=== PATIENT | male | born 1985 | race Caucasian/White ===

== ENCOUNTER 2018-10-06 13:06 | Emergency (ER) | payer SELFPAY ==
[2018-10-06 13:19] VITALS: BP 121/89; PULSE 68; RESP 20; TEMP 36.8; O2SAT 100
--- NOTE | 2018-10-06 13:47 | W.ED.GENAD ---
Discharge Plan Disposition Patient Disposition: HOME Condition: Stable Discharge Details Chief Complaint: DentalOral Clinical Impression: Dental infection, Broken tooth Primary Care Provider: Kasi Lundy ED Provider: Lourdes Seals Home Meds and New Rx's Prescriptions: New penicillin V potassium 500 mg tablet 500 mg PO QID 7 Days Qty: 28 RF: 0 naproxen 250 mg tablet 250 mg PO BID PRN (Reason: pain) Qty: 20 RF: 0 Discharge Instructions Instructions: Dental Abscess (ED), Acute Dental Trauma (ED) Additional Instructions: Take the antibiotics until finished. Take naproxen as needed and directed for pain. Call your dentist today to schedule a follow-up appointment for reevaluation and referral to oral surgery if indicated. Return immediately to the emergency department with any worsening or new concerning symptoms. Discharge Data Discharge Physician: Lourdes Seals Medical Decision Making 32-year-old male who presents with right upper dental pain for the past few days after fractured his wisdom tooth a few months ago. Right upper wisdom tooth appears fracture on the buccal side. There is mild surrounding erythema, edema and tenderness palpation but no obvious abscess. Vitals within normal limits. Patient appears nontoxic. Airway intact. We will send home with a prescription for Pen-V K. Patient states he needed a referral for oral surgery as he had seen a dentist in the past and was advised to have oral surgery remove or repair his wisdom tooth. Discussed that patient needs to follow-up with the dentist for referral to oral surgery if indicated. He is instructed to return here with any worsening symptoms. HPI General Mode of arrival: ambulatory. Date/Time Provider Initiated Documentation: 10/06/18 13:29. Limitations to Documentation: no limitations. Information obtained by: patient. HPI Narrative: Patient is a 32-year-old male presents with right upper dental pain for the past few days. Patient states he fractured the tooth several months back but did not cause pain until the last few days. He denies any fever. Related Data Home Medications Medication Instructions Recorded Confirmed naproxen 250 mg PO BID PRN #20 tab 10/06/18 penicillin V potassium 500 mg PO QID 7 Days #28 tab 10/06/18 Previous Rx's Medication Instructions Recorded naproxen 250 mg PO BID PRN #20 tab 10/06/18 penicillin V potassium 500 mg PO QID 7 Days #28 tab 10/06/18 Allergies Allergy/AdvReac Type Severity Reaction Status Date / Time cat dander Allergy Mild runny Unverified 10/06/18 13:22 nose-itchy eyes General Stated Complaint: DentalOral SHERIF: 4 Review of Systems Review of Systems All systems reviewed & are unremarkable except as noted in HPI and below Constitutional Reports as per HPI, Denies chills and Denies fever(s) Eyes Denies blurry vision ENT Reports dental pain, Denies dizziness, Denies sore throat and Denies throat swelling Cardiovascular Denies chest pain and Denies dyspnea Respiratory Denies cough and Denies dyspnea Gastrointestinal Denies abdominal pain, Denies diarrhea and Denies vomiting Genitourinary Denies hematuria and Denies dysuria Musculoskeletal Denies back pain and Denies numbness Integumentary/Breasts Denies lesions and Denies rash Neurologic Denies dizziness, Denies focal weakness and Denies numbness Allergic/Immunologic Denies throat swelling [facility] Medical History Suicide attempt (Acute) Anxiety (Chronic) Depression (Chronic) Surgical History History of ankle surgery (Acute) History of elbow surgery (Acute) History of tonsillectomy and adenoidectomy (Acute) Social History Smoking/Tobacco Use Status: Current every day Alcohol Intake: never Drug use: Daily Substance use type: does not use Do you feel safe in your relationship?: Yes Exam Const General: cooperative, healthy appearing and no acute distress HENAK Head: normal to inspection Ears: hearing grossly normal bilaterally, external ears normal and TM's normal bilaterally General nose exam: external nose normal Face and sinus: normal facial exam Mouth: oral mucosae normal Teeth image: 1. Fractured wisdom tooth on buccal side. Surrounding tenderness, mild mild edema and erythema. No abscess. Throat: posterior oropharynx normal Eyes General: appearance normal, both eyes and all related structures Neck Neck: normal visual inspection Resp Effort & Inspection: normal respiratory effort and able to speak in complete sentences Cardio Rate: regular rate Skin General skin exam: no rashes or lesions noted Neuro General: alert, awake and oriented x3 Motor: muscle tone normal throughout Extrem General: normal to inspection and full ROM Psych Appearance: grossly normal Affect: normal affect Course Vital Signs Temperature 98.2 F 10/06/18 13:19 Pulse 68 10/06/18 13:19 Respiratory Rate 20 10/06/18 13:19 Blood Pressure 121/89 10/06/18 13:19 Pulse Oximetry 100 10/06/18 13:19 Temperature 98.2 F 10/06/18 13:19 Temperature Source Temporal Artery Scan 10/06/18 13:19 Pulse 68 10/06/18 13:19 Respiratory Rate 20 10/06/18 13:19 Respiratory Effort Non-Labored 10/06/18 13:19 Blood Pressure 121/89 10/06/18 13:19 Blood Pressure Position Standing 10/06/18 13:19 Pulse Oximetry 100 10/06/18 13:19 Oxygen Delivery Method Room Air 10/06/18 13:19 Oxygen Flow Rate 0 10/06/18 13:19 Pain Level 10 10/06/18 13:19
--- NOTE | 2018-10-06 13:53 | ED.GENADUL_ITS ---
Discharge Plan Disposition Patient Disposition: HOME Condition: Stable Discharge Details Chief Complaint: DentalOral Clinical Impression: Dental infection, Broken tooth Primary Care Provider: Kasi Lundy ED Provider: Lourdes Seals Home Meds and New Rx's Prescriptions: New penicillin V potassium 500 mg tablet 500 mg PO QID 7 Days Qty: 28 RF: 0 naproxen 250 mg tablet 250 mg PO BID PRN (Reason: pain) Qty: 20 RF: 0 Discharge Instructions Instructions: Dental Abscess (ED), Acute Dental Trauma (ED) Additional Instructions: Take the antibiotics until finished. Take naproxen as needed and directed for pain. Call your dentist today to schedule a follow-up appointment for reevaluation and referral to oral surgery if indicated. Return immediately to the emergency department with any worsening or new concerning symptoms. Discharge Data Discharge Physician: Lourdes Seals Medical Decision Making 32-year-old male who presents with right upper dental pain for the past few days after fractured his wisdom tooth a few months ago. Right upper wisdom tooth appears fracture on the buccal side. There is mild surrounding erythema, edema and tenderness palpation but no obvious abscess. Vitals within normal limits. Patient appears nontoxic. Airway intact. We will send home with a prescription for Pen-V K. Patient states he needed a referral for oral surgery as he had seen a dentist in the past and was advised to have oral surgery remove or repair his wisdom tooth. Discussed that patient needs to follow-up with the dentist for referral to oral surgery if indicated. He is instructed to return here with any worsening symptoms. HPI General Mode of arrival: ambulatory . Date/Time Provider Initiated Documentation: 10/06/18 13:29 . Limitations to Documentation: no limitations . Information obtained by: patient . HPI Narrative: Patient is a 32-year-old male presents with right upper dental pain for the past few days. Patient states he fractured the tooth several months back but did not cause pain until the last few days. He denies any fever. Related Data Home Medications Medication Instructions Recorded Confirmed naproxen 250 mg PO BID PRN #20 tab 10/06/18 penicillin V potassium 500 mg PO QID 7 Days #28 tab 10/06/18 Previous Rx's Medication Instructions Recorded naproxen 250 mg PO BID PRN #20 tab 10/06/18 penicillin V potassium 500 mg PO QID 7 Days #28 tab 10/06/18 Allergies Allergy/AdvReac Type Severity Reaction Status Date / Time cat dander Allergy Mild runny Unverified 10/06/18 13:22 nose-itchy eyes General Stated Complaint: DentalOral SHERIF: 4 Review of Systems Review of Systems All systems reviewed & are unremarkable except as noted in HPI and below Constitutional Reports as per HPI, Denies chills and Denies fever(s) Eyes Denies blurry vision ENT Reports dental pain, Denies dizziness, Denies sore throat and Denies throat swelling Cardiovascular Denies chest pain and Denies dyspnea Respiratory Denies cough and Denies dyspnea Gastrointestinal Denies abdominal pain, Denies diarrhea and Denies vomiting Genitourinary Denies hematuria and Denies dysuria Musculoskeletal Denies back pain and Denies numbness Integumentary/Breasts Denies lesions and Denies rash Neurologic Denies dizziness, Denies focal weakness and Denies numbness Allergic/Immunologic Denies throat swelling [facility] Medical History Suicide attempt (Acute) Anxiety (Chronic) Depression (Chronic) Surgical History History of ankle surgery (Acute) History of elbow surgery (Acute) History of tonsillectomy and adenoidectomy (Acute) Social History Smoking/Tobacco Use Status: Current every day Alcohol Intake: never Drug use: Daily Substance use type: does not use Do you feel safe in your relationship?: Yes Exam Const General: cooperative, healthy appearing and no acute distress HENDE Head: normal to inspection Ears: hearing grossly normal bilaterally, external ears normal and TM's normal bilaterally General nose exam: external nose normal Face and sinus: normal facial exam Mouth: oral mucosae normal Teeth image: 1. Fractured wisdom tooth on buccal side. Surrounding tenderness, mild mild edema and erythema. No abscess. Throat: posterior oropharynx normal Eyes General: appearance normal, both eyes and all related structures Neck Neck: normal visual inspection Resp Effort & Inspection: normal respiratory effort and able to speak in complete sentences Cardio Rate: regular rate Skin General skin exam: no rashes or lesions noted Neuro General: alert, awake and oriented x3 Motor: muscle tone normal throughout Extrem General: normal to inspection and full ROM Psych Appearance: grossly normal Affect: normal affect Course Vital Signs Temperature 98.2 F 10/06/18 13:19 Pulse 68 10/06/18 13:19 Respiratory Rate 20 10/06/18 13:19 Blood Pressure 121/89 10/06/18 13:19 Pulse Oximetry 100 10/06/18 13:19 Temperature 98.2 F 10/06/18 13:19 Temperature Source Temporal Artery Scan 10/06/18 13:19 Pulse 68 10/06/18 13:19 Respiratory Rate 20 10/06/18 13:19 Respiratory Effort Non-Labored 10/06/18 13:19 Blood Pressure 121/89 10/06/18 13:19 Blood Pressure Position Standing 10/06/18 13:19 Pulse Oximetry 100 10/06/18 13:19 Oxygen Delivery Method Room Air 10/06/18 13:19 Oxygen Flow Rate 0 10/06/18 13:19 Pain Level 10 10/06/18 13:19
[2018-10-06 14:27] VITALS: BP 121/89; PULSE 68; RESP 20; TEMP 36.8; O2SAT 100
== END 2018-10-06 14:00 | disposition home or self-care (01) ==
PROVIDERS: Emergency Provider Physician Assistant; PCP Emergency Medicine
DX: K04.7 Periapical abscess without sinus (principal); K03.81 Cracked tooth; F17.210 Nicotine dependence, cigarettes, uncomplicated
CPT/HCPCS: 99281; 99283

== ENCOUNTER 2019-12-29 21:12 | Emergency (ER) | payer OTHER, SELFPAY ==
[2019-12-29] VITALS (7 sets, daily range): BP systolic 121–136; BP diastolic 87–97; PULSE 66–94; RESP 16; TEMP 36.4; O2SAT 96–99
--- NOTE | 2019-12-29 21:24 | W.ED.GENAD ---
Discharge Plan Disposition Patient Disposition: HOME Condition: Good Discharge Details Chief Complaint: Allergic Clinical Impression: Allergic reaction, Hymenoptera sting Primary Care Provider: Kasi Lundy ED Provider: Ilir Wong Home Meds and New Rx's Prescriptions: New diphenhydramine HCl [Benadryl] 25 MG capsule 25 mg PO Q6H Qty: 100 RF: 0 prednisone 50 MG tablet 50 mg PO DAILY Qty: 5 RF: 0 epinephrine 0.3 mg/0.3 mL auto-injector 0.3 mg IM ONCE Qty: 2 RF: 0 Continued naproxen 250 mg tablet 250 mg PO BID PRN (Reason: pain) Qty: 20 RF: 0 Vitamin C 1,000 mg Tablet Extended Release 1,000 mg PO QAM RF: 0 epinephrine [EpiPen] 0.3 mg/0.3 mL Auto-Injector 1 mg IM PRN PRNRF: 0 multivitamin with minerals [Men's One Daily] Tablet 1 tab PO DAILY RF: 0 Discharge Instructions Instructions: Anaphylaxis (ED) Additional Instructions: At this time thankfully you show no signs of anaphylaxis. Continue to monitor your symptoms closely, take the Benadryl every 6 hours and the prednisone every day until the prednisone prescription is completed. Make sure you have an EpiPen with you at all times. If you notice any worsening of your symptoms, or any new symptoms such as vomiting, diarrhea, fever, chills, swelling, worsening redness on your arm, shortness of breath, chest pain, numbness, weakness, or fainting , please return immediately to the emergency department for reevaluation. Please follow up with your primary care provider as soon as possible for reassessment and reevaluation. As always, it was a pleasure participating in your medical care today. 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 He is right-hand dominant. Patient states that 30 minutes ago while at work he was stung by a wasp, he immediately gave himself his EpiPen, and had no side effects aside for a small area of redness where the wasp stung him. He denies any nausea vomiting diarrhea chest pain shortness of breath hyper secretions or swelling in the mouth or throat. He states that when he was a child he had anaphylaxis but this is notably mild symptoms. He states that he has been stung since then, his symptoms are usually quite mild especially when he has himself an EpiPen. No other complaints at this time. No other modifying factors. He does state that he has EpiPen's at home still. Right arm shows a small area of redness with a punctate central lesion, no intact earlier retained stinger. Exam is otherwise unremarkable with no signs of airway edema drooling hyper secretions vomiting or diarrhea or wheezes. Signs and symptoms are clinically consistent with a notably mild hymenoptera sting. At this time secondary to his EpiPen use we will observe for a prolonged period, monitor closely and reassess. We will give Benadryl, Pepcid, and oral steroids. The patient states that he does not need additional EpiPen's from use. 11:15 p.m. Patient has been reassessed, the erythema on his arm at the wasp sting site has completely resolved. Patient continues to feel great, denies any difficulty swallowing, wheezes, nausea vomiting or shortness of breath. Patient feels well and is requesting to go home. With complete resolution of his symptoms, no evidence of rebound anaphylaxis or reaction, no other abnormalities on exam the patient can be discharged. Will give Benadryl steroids and new EpiPen for home use. Discussed red flags which to return. I have extensively reviewed the treatment plan and discharge instructions with the patient. I have addressed all patient concerns at this time. The patient was made aware of what symptoms to monitor for that would warrant a return to the emergency department. Discussed the plan with the patient, they demonstrate verbal understanding and agreement with our assessment and plan at this time. HPI General Date/Time Provider Initiated Documentation: 12/29/19 21:16. 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 He is right-hand dominant. Patient states that 30 minutes ago while at work he was stung by a wasp, he immediately gave himself his EpiPen, and had no side effects aside for a small area of redness where the wasp stung him. He denies any nausea vomiting diarrhea chest pain shortness of breath hyper secretions or swelling in the mouth or throat. He states that when he was a child he had anaphylaxis but this is notably mild symptoms. He states that he has been stung since then, his symptoms are usually quite mild especially when he has himself an EpiPen. No other complaints at this time. No other modifying factors. He does state that he has EpiPen's at home still. Related Data Home Medications Medication Instructions Recorded Confirmed naproxen 250 mg PO BID PRN #20 tab 10/06/18 12/29/19 Vitamin C 1,000 mg PO QAM 12/29/19 12/29/19 diphenhydramine HCl [Benadryl] 25 mg PO Q6H #100 cap 12/29/19 epinephrine 0.3 mg IM ONCE #2 each 12/29/19 epinephrine [EpiPen] 1 mg IM PRN PRN 12/29/19 12/29/19 multivitamin with minerals [Men's 1 tab PO DAILY 12/29/19 12/29/19 One Daily] prednisone 50 mg PO DAILY #5 tab 12/29/19 Previous Rx's Medication Instructions Recorded naproxen 250 mg PO BID PRN #20 tab 10/06/18 diphenhydramine HCl [Benadryl] 25 mg PO Q6H #100 cap 12/29/19 epinephrine 0.3 mg IM ONCE #2 each 12/29/19 prednisone 50 mg PO DAILY #5 tab 12/29/19 Allergies Allergy/AdvReac Type Severity Reaction Status Date / Time hornet venom Allergy Severe Anaphylaxsi Unverified 12/29/19 21:23 s cat dander Allergy Mild runny Unverified 10/06/18 13:22 nose-itchy eyes General Stated Complaint: Allergic SHERIF: 3 Review of Systems All systems reviewed & are unremarkable except as noted in HPI and below PFSH Medical History Anxiety (Chronic) Depression (Chronic) Suicide attempt (Acute) Surgical History History of ankle surgery (Acute) History of elbow surgery (Acute) History of tonsillectomy and adenoidectomy (Acute) Social History Smoking/Tobacco Use Status: Current every day Alcohol Intake: never Drug use: Daily Substance use type: does not use Do you feel safe at home: Yes Do you feel safe in your relationship?: Yes Exam Narrative Exam Narrative: 1.Const: Well-nourished, Well-developed, appearing stated age 2.Eyes: PERRL, no conjunctival injection, and symmetrical lids. 3.ENT: Atraumatic external nose and ears. Moist MM. Neck: Symmetric, trachea midline, No thyromegaly. No signs of swelling in the posterior oropharynx. 4.CVS: +S1/S2, No murmurs or gallops. Peripheral pulses 2+ and equal in all extremities. Brisk capillary refill in all extremities. 5.RESP: Unlabored respiratory effort. Clear to auscultation bilaterally. No wheezes rales or rhonchi 6.GI: Soft, Nontender/Nondistended, No hepatosplenomegaly. No guarding or rebound. 7.MSK: Normocephalic/Atraumatic, Extremities w/o deformity or ttp No cyanosis or clubbing, Normal movement of all extremities 8.Skin: Warm, Dry. No rashes or lesions. Small area of redness with a punctate hymenoptera sting dana at the center on the right forearm. Diameter is roughly 3 cm, non-indurated, only minimally erythematous. 9.Neuro: nurses assistant II-XII grossly intact. Sensation grossly intact, no focal neurologic deficits. 10.Psych: (AAO) x3. Appropriate mood and affect Course Vital Signs Vital signs: Vital Signs Temperature 36.4 C L 12/29/19 21:18 Pulse 94 H 12/29/19 21:18 Respiratory Rate 16 12/29/19 21:18 Blood Pressure 133/97 H 12/29/19 21:18 Pulse Oximetry 96 12/29/19 21:18 Temperature 36.4 C L 12/29/19 21:18 Temperature Source Skin 12/29/19 21:18 Pulse 94 H 12/29/19 21:18 Respiratory Rate 16 12/29/19 21:18 Blood Pressure 133/97 H 12/29/19 21:18 Pulse Oximetry 96 12/29/19 21:18 Pain Level 5 12/29/19 21:18
[2019-12-29] MEDS: Famotidine 20 MG TAB 40 MG PO (21:30)
[2019-12-29] MEDS: diphenhydrAMINE 25 MG CAP PO (21:31)
[2019-12-29] MEDS: predniSONE 20 MG TAB 60 MG PO (21:31)
== END 2019-12-29 23:05 | disposition home or self-care (01) ==
PROVIDERS: Emergency Provider Student in an Organized Health Care Education/Training Program; PCP Emergency Medicine
DX: T63.451A Toxic effect of venom of hornets, accidental (unintentional), initial encounter (principal); L53.9 Erythematous condition, unspecified; Z91.030 Bee allergy status
CPT/HCPCS: 99283; J7512

== ENCOUNTER 2020-05-02 10:57 | Outpatient (CLI) | payer OTHER, SELFPAY ==
[2020-05-03 18:42] LABS: COVID-19 RT-PCR UVMMC Result Negative (Negative)
== END 2020-05-02 11:17 ==
PROVIDERS: PCP Emergency Medicine; Visit Provider Emergency Medicine
DX: Z11.59 Encounter for screening for other viral diseases (principal); Z20.828 Contact with and (suspected) exposure to other viral communicable diseases
CPT/HCPCS: U0003

== ENCOUNTER 2020-07-23 17:49 | Outpatient (CLI) | payer OTHER, SELFPAY ==
--- NOTE | 2020-07-23 | DI.RAD_ITS ---
EXAM: XR SHOULDER RT COMPLETE 2+V CLINICAL HISTORY: Unspecified injury of right shoulder and upper arm, initial. TECHNIQUE: 2D digital imaging was performed. COMPARISON: CR CHEST 2 VIEWS PA,LAT from 06/22/2008 CR CHEST 2 VIEWS PA,LAT from 06/22/2008 CR CHEST 2 VIEWS PA,LAT from 04/28/2014 CR CHEST 2 VIEWS PA,LAT from 04/28/2014 CR CHEST 2 VIEWS PA,LAT from 12/01/2016 CR CHEST 2 VIEWS PA,LAT from 12/01/2016 FINDINGS: BONES: No acute fracture is present. No bony destructive lesion is seen. JOINTS: Humeral head appears mildly inferiorly subluxed with respect to the glenoid. SOFT TISSUE: Normal. IMPRESSION: Question of mild inferior subluxation at the glenohumeral joint. DATA REPOSITORY: RADIATION DOSE DELIVERED:
--- NOTE | 2020-07-23 18:51 | DI.VRAD_ITS ---
PROCEDURE INFORMATION: Exam: XR Right Shoulder Exam date and time: 07/23/2020 6:23 PM Age: 34 years old Clinical indication: Pain; Patient HX: Unspecified injury of right shoulder and upper arm TECHNIQUE: Imaging protocol: XR Right shoulder. Views: 2 or more views. COMPARISON: No relevant prior studies available. FINDINGS: Bones/joints: Normal. Soft tissues: Normal. IMPRESSION: No acute findings. Dictated and Authenticated by: Paulie Welsh MD. Ordering:JADIEL Ross MD
== END 2020-07-23 18:09 ==
PROVIDERS: PCP Emergency Medicine; Visit Provider Nurse Practitioner Family
DX: M25.511 Pain in right shoulder (principal); S49.81XA Other specified injuries of right shoulder and upper arm, initial encounter; S43.081A Other subluxation of right shoulder joint, initial encounter
CPT/HCPCS: 73030

== ENCOUNTER 2020-08-29 11:55 | Outpatient (CLI) | payer OTHER, SELFPAY ==
--- NOTE | 2020-08-29 11:00 | DI.RAD_ITS ---
EXAM: XR SHOULDER RT 1V CLINICAL HISTORY: right shoulder pain. TECHNIQUE: 2D digital imaging was performed. COMPARISON: CR,XR XR SHOULDER RT COMPLETE 2+V from 07/23/2020 FINDINGS: Single axial view of the right shoulder reveals no evidence of fracture or dislocation. Glenohumeral joint space is normal on this view. The coracoid process is intact. There are no abnormal soft tis ronal calcifications. No evidence of os acromiale. Bone density is normal. No osseous lesions. IMPRESSION: DATA REPOSITORY: RADIATION DOSE DELIVERED:
== END 2020-08-29 11:56 | disposition home or self-care (01) ==
LOC: DIORS 11:55
PROVIDERS: PCP Emergency Medicine; Referring Provider Emergency Medicine; Visit Provider Student in an Organized Health Care Education/Training Program
DX: M25.511 Pain in right shoulder (principal)
CPT/HCPCS: 73020

== ENCOUNTER 2020-12-13 13:29 | Outpatient (CLI) | payer OTHER, SELFPAY ==
--- NOTE | 2020-12-13 | DI.RAD_ITS ---
Exam(s) XR FOOT RT COMPLETE EXAM: XR FOOT RT COMPLETE CLINICAL HISTORY: RT FOOT PAIN, M79.671. TECHNIQUE: 2D digital imaging was performed. COMPARISON: No exams were available for comparison FINDINGS: There is no evidence of acute fracture or diastasis of the Lisfranc joint. There is no dorsal soft t issue swelling. No radiopaque foreign body seen. Bone density is normal. There is no radiographic evidence of osteomyelitis. IMPRESSION: DATA REPOSITORY: RADIATION DOSE DELIVERED:
== END 2020-12-13 13:49 ==
PROVIDERS: PCP Emergency Medicine; Visit Provider Physician Assistant Medical
DX: M79.671 Pain in right foot (principal)
CPT/HCPCS: 73630

== ENCOUNTER 2021-05-16 11:23 | Outpatient (REF) | payer SELFPAY ==
[2021-05-17 02:09] LABS: COVID-19 RT-PCR UVMMC Result Negative (Negative)
== END 2021-05-16 11:24 | disposition home or self-care (01) ==
LOC: LBN 11:23
PROVIDERS: PCP Emergency Medicine; Visit Provider Physician Assistant Medical
DX: Z20.822 Contact with and (suspected) exposure to COVID-19 (principal)
CPT/HCPCS: U0003

== ENCOUNTER 2022-04-24 10:23 | Emergency (ER) | payer SELFPAY ==
[2022-04-24 10:26] VITALS: BP 134/92; PULSE 74; RESP 17; TEMP 36.4; O2SAT 100
--- NOTE | 2022-04-24 10:30 | DI.CT_ITS ---
Exam(s) CT RENAL COLIC WO EXAM: CT RENAL COLIC WO INDICATION: Right flank pain. COMPARISON: No exams were available for comparison TECHNIQUE: CT examination was performed without contrast administration. FINDINGS: Images obtained through the lung bases are unremarkable. Visualized portions of the liver and splee n appear intact except for an apparent incidental cyst at the dome of the liver. Note is made of a moderate-sized hiatal hernia.. Visualized portions of the pancreas are unremarkable. Gallbladder and bile ducts are CT normal. Abdominal aorta is of normal diameter. No significant abdominal wall hernia. No significant abdominal or pelvic adenopathy. Adrenals appear normal bilaterally. There is right hydronephrosis and hydroureter to the level of the ureterovesical junction where there is an apparent 3 millimeter in diameter obstructing intramural stone period no additional calcificat ion identified in the right collecting system or ureter period. There is no evidence of a left renal mass, hydronephrosis, or nephrolithiasis. Urinary bladder is unremarkable in appearance. IMPRESSION: 3 millimeter obstructing stone in the intramural portion of the distal right ureter, mild right hydro nephrosis.. RADIATION DOSE DELIVERED: DLP Total DLP DATA REPOSITORY: All CT scans at this facility are submitted to the National Radiology Data Registry (NRDR) Dose Index Registry (DIR) with the [employer] (ACR). RADIATION OPTIMIZATION: All CT scans at this facility use at least one of these dose optimization te chniques: automated exposure control; mA and/or kV adjustment per patient size (includes targeted exa ms where dose is matched to clinical indication); or iterative reconstruction.
--- NOTE | 2022-04-24 10:40 | ED.GENADUL_ITS ---
Discharge Plan Disposition Patient Disposition: Home Condition: Stable Discharge Details Clinical Impression: Right ureteral stone Primary Care Provider: Salvador Johnson ED Provider: Hortensia Del Rosario Home Meds and New Rx's Prescriptions: New tamsulosin [Flomax] 0.4 mg capsule 0.4 mg PO QHS Qty: 7 0RF Rx Instructions: Take one capsule at bedtime x 7 days oxycodone-acetaminophen [Percocet] 5-325 mg tablet 1 tab PO TID PRN (Reason: pain) Qty: 10 0RF Rx Instructions: Take one tablet with food up to three times a day as needed for severe pain. Continued naproxen 250 mg tablet 250 mg PO BID PRN (Reason: pain) Qty: 20 0RF Vitamin C 1,000 mg Tablet Extended Release 1,000 mg PO QAM epinephrine [EpiPen] 0.3 mg/0.3 mL Auto-Injector 1 mg IM PRN PRN Men's One Daily Tablet 1 tab PO DAILY diphenhydramine HCl [Benadryl] 25 MG capsule 25 mg PO Q6H Qty: 100 0RF epinephrine 0.3 mg/0.3 mL auto-injector 0.3 mg IM ONCE Qty: 2 0RF Rx Instructions: as a single dose Discharge Instructions Instructions: Kidney Stones (ED), How to Strain Your Urine (ED) Additional Instructions: CT shows 3 mm stone at UVJ. Please strain all urine. If you do collect a stone you may keep it to follow-up with urology. Take the pain medication as directed. Please take Tylenol or Ibuprofen with food every 4-6 hours as needed for pain and swelling. Please follow-up with urology in the next week if you are having continued pain. Follow up with primary care provider in 3-5 days. Return to ED sooner if any worsening pain, vomiting, inability to urinate, fever or concerns. Increase oral fluids. Referrals: Salvador Johnson, DES[employer] [Primary Care Provider] - Sade Emery DNP [NURSE PRACTITIONER] - 5 days (Right Ureteral stone at UVJ ) Discharge Data Discharge Date/Time-TO BE ENTERED AT DEPARTURE: 04/24/22 12:35 Medical Decision Making 36-year-old male presents to the ER with chief complaint of acute onset of right flank pain which began this morning while brushing his teeth. He reports radiation of pain down to his right lower quadrant. He reports nausea no vomiting no diarrhea. Patient has changed his mind and agrees to IV start and lab draw. Orders placed. CBC within normal limits no leukocytosis, CMP largely within normal limits, lipase within normal limits, CT shows 3 mm kidney stone at right UVJ this explains cause for his pain. Discussed results with patient and family verbalized understanding. Discussed follow-up with urology and straining all urine. Patient was given Zofran and Percocet prescription and instructed on use. Strict return instructions discussed and follow-up care. This text was generated using [employer]AREFORMation system, please disregard any oddities of phrase or misspellings. Lab Data Lab results reviewed: Yes I reviewed the patient's lab results. Labs: Laboratory Tests Range/Units 04/24/22 04/24/22 04/24/22 10:33 10:45 10:45 WBC (4.4-10.8) 10^3/uL 6.43 RBC (4.36-5.78) 10^6/uL 5.18 Hgb (13.5-17.5) g/dL 16.2 Hct (40.0-50.0) % 48.1 MCV (80-95) fL 93 MCH (27.0-33.0) pg 31.3 MCHC (32.0-36.0) % 33.7 RDW (11.8-14.1) % 11.9 Plt Count (130-400) 10^3/uL 315 MPV (8.0-11.0) fL 9.2 Immature Gran % 0.2 Neutrophils % 56.9 Lymphocytes % 29.5 Monocytes % 7.8 Eosinophils % 5.0 Basophils % 0.6 Nucleated RBC % (0.0-0.3) % 0.0 Absolute Neutrophils (1.2-6.7) 10^3/uL 3.66 Absolute Lymphocytes (1.2-3.4) 10^3/uL 1.90 Absolute Monocytes (0.1-0.8) 10^3/uL 0.50 Absolute Eosinophils (0.0-0.7) 10^3/uL 0.32 Absolute Basophils (0.0-0.2) 10^3/uL 0.04 Sodium (136-145) mmol/L 140 Potassium (3.5-5.1) mmol/L 4.0 Chloride (98-107) mmol/L 104 Carbon Dioxide (21.0-32.0) mmol/L 27.0 Anion Gap (3-11) mmol/L 9.0 BUN (7-18) mg/dL 16 Creatinine (0.70-1.30) mg/dL 1.2 Est GFR (CKD-EPI 2020) (mL/min/1.73m2) 80.88 Glucose (74-106) mg/dL 116 H Calcium (8.5-10.1) mg/dL 9.1 Total Bilirubin (0.2-1.0) mg/dL 0.7 AST (15-37) U/L 25 ALT (16-63) U/L 43 Alkaline Phosphatase (46-116) U/L 85 Total Protein (6.4-8.2) g/dL 8.1 Albumin (3.4-5.0) g/dL 4.3 Lipase (73-393) U/L 109 Urine Color Cancelled Urine Clarity Cancelled Urine pH Cancelled Ur Specific Hardy Cancelled Urine Protein Cancelled Urine Ketones Cancelled Urine Blood Cancelled Urine Nitrite Cancelled Urine Bilirubin Cancelled Urine Urobilinogen Cancelled Ur Leukocyte Esterase Cancelled Urine Glucose Cancelled Sign Out No HPI General Mode of arrival: ambulatory . Date/Time Provider Initiated Documentation: 04/24/22 10:29 . Limitations to Documentation: no limitations . Information obtained by: patient, family, RN notes reviewed and old records reviewed . HPI Narrative: 36-year-old male presents to the ER with chief complaint of acute onset of right flank pain which began this morning while brushing his teeth. He reports radiation of pain down to his right lower quadrant. He reports nausea no vomiting no diarrhea. Denies any known injury or heavy lifting. He did not take any medication prior to arrival. Upon initial exam patient appears to be in pain, he is refusing to have an IV started or labs drawn at this time. Did discuss risks and benefits verbalized understanding. Related Data Home Medications Medication Instructions Recorded Confirmed naproxen 250 mg tablet 250 mg PO BID PRN pain #20 tabs 10/06/18 04/24/22 ascorbic acid (vitamin C) 1,000 mg 1,000 mg PO QAM 12/29/19 04/24/22 tablet,extended release (Vitamin C ER) diphenhydramine HCl 25 mg capsule 25 mg PO Q6H #100 caps 12/29/19 04/24/22 (Benadryl) epinephrine 0.3 mg/0.3 mL 0.3 mg (0.3 mL) IM ONCE #2 ea 12/29/19 04/24/22 injection, auto-injector epinephrine 0.3 mg/0.3 mL 1 mg IM PRN PRN 12/29/19 04/24/22 injection, auto-injector (EpiPen) multivitamin with minerals (Men's 1 tab PO DAILY 12/29/19 04/24/22 One Daily tablet) oxycodone-acetaminophen 5 mg-325 1 tab PO TID PRN pain #10 tabs 04/24/22 mg tablet (Percocet) tamsulosin 0.4 mg capsule (Flomax) 0.4 mg PO QHS #7 caps 04/24/22 Previous Rx's Medication Instructions Recorded naproxen 250 mg tablet 250 mg PO BID PRN pain #20 tabs 10/06/18 diphenhydramine HCl 25 mg capsule 25 mg PO Q6H #100 caps 12/29/19 (Benadryl) epinephrine 0.3 mg/0.3 mL 0.3 mg (0.3 mL) IM ONCE #2 ea 12/29/19 injection, auto-injector oxycodone-acetaminophen 5 mg-325 1 tab PO TID PRN pain #10 tabs 04/24/22 mg tablet (Percocet) tamsulosin 0.4 mg capsule (Flomax) 0.4 mg PO QHS #7 caps 04/24/22 Allergies Allergy/AdvReac Type Severity Reaction Status Date / Time hornet venom Allergy Severe Anaphylaxsi Unverified 04/24/22 10:31 s cat dander Allergy Mild runny Unverified 04/24/22 10:31 nose-itchy eyes General Stated Complaint: Abd Prob SHERIF: 3 Review of Systems All systems reviewed & are unremarkable except as noted in HPI and below Gastrointestinal Gastrointestinal: Reports abdominal pain, Denies diarrhea, Reports nausea and Denies vomiting Genitourinary Genitourinary: Reports as per HPI and Reports flank pain PFSH All Active Problems (Updated 04/24/22 @ 12:01 by Hortensia Del Rosario NP) Right ureteral stone (Acute) Bursitis of right shoulder (Acute) Tendonitis of long head of biceps brachii of right shoulder (Acute) Labral tear of shoulder (Acute) SLAP lesion of right shoulder (Acute) Recurrent shoulder dislocation (Acute) Irritant contact dermatitis due to other chemical products (Acute) Unspecified contact dermatitis due to food in contact with skin (Acute) Medical History Anxiety Depression Suicide attempt Surgical History History of ankle surgery History of elbow surgery History of tonsillectomy and adenoidectomy Social History Smoking/Tobacco Use Status: Current every day Tobacco Type: cigarettes Smoking risk assessment performed?: Yes Alcohol Intake: current Drug use: Never Substance use type: does not use Current gender identity: male Do you feel safe at home: Yes Do you feel safe in your relationship?: Yes Exam Narrative Exam Narrative: Constitutional: Alert and oriented x3. Appears stated age. Normal body habitus. Head: Normocephalic, no trauma. Eyes: Pupils PERRL, Red reflex noted, EOM's intact. Eyelids symmetrical without lesions, discharge, or swelling. ENT: Bilateral TM's WNL, External ear normal to inspection, no mastoid TTP, swelling, or erythema, Nasal turbinates WNL, no nasal discharge. Normal dentition, Posterior pharynx WNL, no exudate. Chest: RRR, Normal S1, S2, distal pulses intact. Resp: Lungs clear to auscultation bilaterally, no wheezes, rales, or rhonchi. Abdomen: Soft, non-distended, Normoactive bowel sounds all 4 quads. Musculoskeletal: Normal gait, 5/5 strength to all four extremities. Skin: No suspicious rashes or lesions. Capillary refill less than 2 sec. Neurologic: Cranial nerves II-XII intact. Alert and oriented x 3. Motor: No defi cits noted. Sensory: Intact bilaterally all 4 extremities. Reflexes: DTR's intact bilaterally.. Hematologic/Lymphatic: No ecchymosis, no lymphadenopathy. Course Vital Signs Vital signs: Vital Signs Temperature 36.4 C L 04/24/22 10:26 Pulse 74 04/24/22 10:26 Respiratory Rate 17 11/24/22 10:26 Blood Pressure 134/92 H 04/24/22 10:26 Pulse Oximetry 100 04/24/22 10:26 Temperature 36.4 C L 04/24/22 10:26 Temperature Source Temporal Artery Scan 04/24/22 10:26 Pulse 74 04/24/22 10:26 Respiratory Rate 17 04/24/22 10:26 Respiratory Effort Non-Labored 04/24/22 10:28 Blood Pressure 134/92 H 04/24/22 10:26 Blood Pressure Position Sitting 04/24/22 10:26 Pulse Oximetry 100 04/24/22 10:26 Oxygen Delivery Method Room Air 04/24/22 10:26 Oxygen Flow Rate 0 04/24/22 10:26 Pain Level 10 04/24/22 10:29 PAWSS Have you Been Recently Intoxicated or Drunk Within the Last 30 days?: Yes Have you Ever Experienced Previous Episodes of Alcohol Withdrawal?: No Have you ever Experienced Withdrawal Seizures?: No Have you ever Experienced Delirium Tremens(DT)s?: No Have you ever undergone Alcohol Rehabilitation Treatment (i.e, inpt ot outpatient treatment programs)?: No Have you ever Experienced Blackouts?: No Have you ever Combined Alcohol with other Downers within the last 90 days?: No Have you ever Combined Alcohol with any other Substance of Abuse during the last 90 days?: No Result: 1
[2022-04-24] MEDS: Ondansetron 4 MG/2 ML VIAL IVP (10:54)
[2022-04-24] MEDS: MORPHine 4 MG/ML SYR IVP (10:54)
[2022-04-24 11:06] LABS: Abs Immature Grans 0.01 10^3/uL (0.0-0.06); Absolute Basophil Count 0.04 10^3/uL (0.0-0.2); Absolute Eosinophil Count 0.32 10^3/uL (0.0-0.7); Absolute Neutrophil Count 3.66 10^3/uL (1.2-6.7); Basophils % 0.6; HCT 48.1 % (40.0-50.0); HGB 16.2 g/dL (13.5-17.5); Immature Grans % 0.2; Lymphocytes % 29.5; MCH 31.3 pg (27.0-33.0); MCHC 33.7 % (32.0-36.0); MCV 93 fL (80-95); MPV 9.2 fL (8.0-11.0); Monocytes % 7.8; Neutrophils % 56.9; Platelet Count 315 10^3/uL (130-400); RBC 5.18 10^6/uL (4.36-5.78); RDW 11.9 % (11.8-14.1); RDW-SD 41.1 fL; WBC 6.43 10^3/uL (4.4-10.8)
[2022-04-24 11:23] LABS: ALT 43 U/L (16-63); AST 25 U/L (15-37); Albumin 4.3 g/dL (3.4-5.0); Alkaline Phosphatase 85 U/L (46-116); BUN 16 mg/dL (7-18); Bilirubin, Total 0.7 mg/dL (0.2-1.0); CREATININE 1.2 mg/dL (0.70-1.30); Calcium 9.1 mg/dL (8.5-10.1); Chloride 104 mmol/L (98-107); Estimated GFR 80.88 (mL/min/1.73m2); Glucose 116 mg/dL (74-106); Lipase 109 U/L (73-393); Sodium 140 mmol/L (136-145); Total Protein 8.1 g/dL (6.4-8.2)
--- NOTE | 2022-04-24 11:38 | DI.VRAD_ITS ---
PROCEDURE INFORMATION: Exam: CT Abdomen And Pelvis Without Contrast Exam date and time: 04/24/2022 10:54 AM Age: 36 years old Clinical indication: Other: RT flank pain TECHNIQUE: Imaging protocol: Computed tomography of the abdomen and pelvis without contrast. COMPARISON: MRI R LOWER JOINT WO CONT 08/14/2016 5:14 PM FINDINGS: Lungs: Atelectasis in both lower lobes Diaphragm: Moderate hiatal hernia Liver: 2.7 cm simple cyst dome of the liver . No follow-up imaging recommended . Gallbladder and bile ducts: Normal. No calcified stones. No ductal dilation. Pancreas: Normal. No ductal dilation. Spleen: Normal. No splenomegaly. Adrenal glands: Normal. No mass. Kidneys and ureters: 3 millimeter RIGHT UVJ calculus causes dilatation of the RIGHT ureter, and RIGHT collecting system. The RIGHT kidney is edematous . Stomach and bowel: Unremarkable. No obstruction. No mucosal thickening. Appendix: Normal appendix Intraperitoneal space: Unremarkable. No free air. No significant fluid collection. Vasculature: Unremarkable. No abdominal aortic aneurysm. Lymph nodes: Unremarkable. No enlarged lymph nodes. Urinary bladder: Unremarkable as visualized. Reproductive: See Kidneys and ureters finding. Bones/joints: Unremarkable. No acute fracture. Soft tissues: Unremarkable. IMPRESSION: 3 millimeter RIGHT UVJ calculus causes dilatation of the RIGHT ureter, and RIGHT collecting system. The RIGHT kidney is edematous . Dictated and Authenticated by: Edson Segura MD. Ordering:WESLY Bazan MD
[2022-04-24] MEDS: Normal Saline 1,000 ML 1000 ML IV (11:58)
[2022-04-24] MEDS: Ketorolac 30 MG/ML VIAL (11:58)
[2022-04-24] MEDS: Tamsulosin 0.4 MG CAPCR PO (11:59)
--- NOTE | 2022-04-24 17:47 | NUR.NOTE ---
Nursing Note: referral to cm for urology
== END 2022-04-24 12:35 | disposition home or self-care (01) ==
PROVIDERS: Emergency Provider Registered Nurse Emergency; PCP Nurse Practitioner Family
DX: N20.1 Calculus of ureter (principal); R10.9 Unspecified abdominal pain
CPT/HCPCS: 80053; 83690; 96361; 96374; 96375; 99284; 74176; 81003; 85025; 99283; J1885; J2270; J2405

== ENCOUNTER 2024-10-31 15:52 | Outpatient (REF) | payer OTHER, SELFPAY ==
[2024-10-31 13:10] LABS: COMMENT (LAB VIEW ONLY) 173.94 mg/dL
[2024-10-31 13:15] LABS: Microalb ug/mg Crea 65.2 ug/mg Cr
== END 2024-10-31 15:53 | disposition home or self-care (01) ==
LOC: LBN 15:52
PROVIDERS: PCP Nurse Practitioner Family; Visit Provider Nurse Practitioner Family
DX: I10 Essential (primary) hypertension (principal)
CPT/HCPCS: 82043; 82570